=== PATIENT | male | born 1955 | race Caucasian/White ===

== ENCOUNTER → 2020-11-11 | Outpatient (CLI) | payer OTHER | LOC: LAB SHORT 15:21 → LAB 15:21 | DX: L98.9 Disorder of the skin and subcutaneous tissue, unspecified (principal); L01.02 Bockhart's impetigo | CPT/HCPCS: 88305; 88312 ==

== ENCOUNTER 2024-11-15 16:45 | Emergency (ER) | payer OTHER ==
[~2024-11-15] VITALS: Ht 175.3 cm; Wt 81.7 kg
[2024-11-15] MEDS ORDERED: NS 1,000 ML IV SCH (17:00)
[2024-11-15] MEDS ORDERED: IRBESARTAN150 M3 PO (17:13)
[2024-11-15] MEDS ORDERED: METAXALONE800 M1 UD (17:13)
[2024-11-15] MEDS ORDERED: DEPO-TESTO200 MG/18 IM (17:13)
[2024-11-15] MEDS ORDERED: ASPI81CH PO (17:14)
[2024-11-15 17:33] LABS: BASOPHILS ABSOLUTE AUTO 0.04 K/mm3 (0.00-0.23); BASOPHILS PERCENT AUTO 1 % (0-2); EOSINOPHILS ABSOLUTE AUTO 0.11 K/mm3 (0.00-0.68); EOSINOPHILS PERCENT AUTO 1 % (0-6); Hematocrit 46.0 % (37.0-53.0); Hemoglobin 15.9 g/dL (13.5-17.5); IMMATURE GRAN ABSOLUTE AUTO 0.05 K/mm3 (0.00-0.10); IMMATURE GRAN PERCENT AUTO 1 % (0-1); LYMPHOCYTES ABSOLUTE AUTO 2.38 K/mm3 (0.84-5.20); LYMPHOCYTES PERCENT AUTO 29 % (21-46); MONOCYTES ABSOLUTE AUTO 0.71 K/mm3 (0.16-1.47); MONOCYTES PERCENT AUTO 9 % (4-13); Mean Corpuscular HGB Conc 34.6 g/dL (31.5-36.5); Mean Corpuscular Volume 90 fL (80-100); NEUTROPHILS ABSOLUTE AUTO 4.91 K/mm3 (1.96-9.15); NEUTROPHILS PERCENT AUTO 60 % (41-73); NRBC ABSOLUTE 0.00 K/mm3 (0.00-0.02); NRBC Auto 0.0 /100 WBC (0.0-0.2); RDW Coefficient Variation 13.0 % (11.7-14.2); RDW Standard Deviation 43.4 fL (35.1-46.3)
[2024-11-15 17:37] LABS: Anion Gap 9.0 mmol/L (3-11); Blood Urea Nitrogen 35.0 mg/dL (8-24); CO2, Blood 24.0 mmol/L (21-32); Calcium, Blood 9.2 mg/dL (8.5-10.1); Chloride, Blood 111.0 mmol/L (98-108); Creatinine, Blood 1.31 mg/dL (0.60-1.20); Glucose, Blood 120.0 mg/dL (70-99); Magnesium, Blood 2.3 mg/dL (1.6-2.4); Potassium, Blood 4.0 mmol/L (3.5-5.5); Sodium, Blood 140.0 mmol/L (136-145); Thyroid Stimulating Hormone 2.94 uIU/mL (0.360-4.800)
[2024-11-15 18:03] LABS: Platelet Count 217 K/mm3 (150-400)
[2024-11-15 18:15] VITALS: BP 124/88
== END 2024-11-15 18:31 | disposition home or self-care (01) ==
LOC: ER 16:45
PROVIDERS: Emergency Medicine
DX: R00.0 Tachycardia, unspecified (principal); E86.0 Dehydration; R79.89 Other specified abnormal findings of blood chemistry
CPT/HCPCS: 80048; 83735; 84439; 84443; 84484; 85025; 93005; 93010; 96360; 99284-25; J7030